=== PATIENT | female | born 1970 | race African-American/Black ===

== ENCOUNTER 2020-04-23 09:11 | Emergency (ER) | payer SELFPAY ==
[2020-04-23] MEDS ORDERED: Acetaminophen 500 MG TAB ONE (09:23)
[2020-04-23] MEDS ORDERED: Ibuprofen 200 MG TAB ONE (09:23)
--- NOTE | 2020-04-23 18:14 | RAD ---
RIGHT ANKLE THREE VIEWS: 04/23/20 No fracture or joint space abnormality was seen. A calcaneal spur is present. IMPRESSION: No acute bony finding. POS: HOME
== END 2020-04-23 10:00 | disposition home or self-care (01) ==
LOC: BURERS 09:11
DX: S93.421A Sprain of deltoid ligament of right ankle, initial encounter (principal); I10 Essential (primary) hypertension; F31.9 Bipolar disorder, unspecified; Z79.899 Other long term (current) drug therapy; W18.42XA Slipping, tripping and stumbling without falling due to stepping into hole or opening, initial encounter

== ENCOUNTER 2020-06-16 04:43 | Emergency (ER) | payer SELFPAY ==
[2020-06-16] MEDS ORDERED: Morphine 10 MG/ML VIAL ONE (05:11)
[2020-06-16] MEDS ORDERED: Ondansetron PF 4 MG/2 ML Vial ONE (05:21)
[2020-06-16] MEDS ORDERED: Ketorolac Tromethamine 30 MG/ML VIAL ONE (05:27)
[2020-06-16 05:29] LABS: Bilirubin Negative (Negative); Blood, Urine Moderate (Negative); Clarity Clear (Clear); Glucose, Urine (Dipstick) 100 mg/dL (Negative); Ketone, Urine Trace mg/dL (Negative); Leukocyte Trace (Negative); Nitrite Negative (Negative); Protein, Urine (Dipstick) 30 mg/dL (Neg-Trace); pH, Urine 7.5 (5.0-9.0)
[2020-06-16 05:30] LABS: BHCG - Serum Negative (NEGATIVE); Pregs Control Background? CLEAR/WHITE (CLR/WHITE); Pregs Control Bar Appear? YES (CONTROL BAR)
[2020-06-16 05:34] LABS: Bacteria/HPF 2+ HPF (None Seen); Squamous Epithelial 0-3 HPF (0-3)
[2020-06-16 05:39] LABS: ALT (SGPT) 12 U/L (8-55); AST (SGOT) 19 U/L (5-34); Albumin 3.7 g/dL (3.5-5.0); Alkaline Phosphatase 41 U/L (40-110); Anion Gap 20 mmol/L (10-20); BUN (Urea Nitrogen) 17 mg/dL (7.0-18.7); Bilirubin, Total 0.3 mg/dL (0.2-1.2); Calc. Creatinine Clearance 0 mL/min (70-130); Calcium 8.6 mg/dL (7.8-10.44); Carbon Dioxide 20 mmol/L (22-29); Chloride 101 mmol/L (98-107); Estimated GFR-MDRD Greater than 90; Globulin 3.8 g/dL (2.4-3.5); Glucose 214 mg/dL (70-105); Lipase 8 U/L (8-78); Potassium 4.7 mmol/L (3.5-5.1); Protein, Total 7.5 g/dL (6.0-8.3); Sodium 136 mmol/L (136-145)
[2020-06-16] MEDS ORDERED: Fentanyl 100 MCG/2 ML VIAL ONE (05:42)
[2020-06-16 05:46] LABS: #Basophils 0.1 thou/uL (0.0-0.2); #Lymphocytes 1.3 thou/uL (1.20-3.40); #Monocytes 0.5 thou/uL (0.11-0.59); #Neutrophils 9.6 thou/uL (1.40-6.50); %Eosinophils 0.1 % (0.0-10.0); %Lymphocytes 11.6 % (21.0-51.0); %Monocytes 4.7 % (0.0-10.0); %Neutrophils 82.7 % (42.0-75.0); Anisocytosis SLIGHT = 6-15 cells (100X) (0-5/hpf); Hemoglobin 8.8 g/dL (12.0-16.0); Hypochromia SLIGHT = 6-15 cells (100X) (0-5/hpf); MDiff Complete? YES; Mean Corpuscular HGB CONC 29.9 g/dL (32.0-36.0); Mean Corpuscular Hemoglobin 19.8 pg (27.0-31.0); Mean Corpuscular Volume 66.1 fL (78.0-98.0); Microcytosis SLIGHT = 6-15 cells (100X) (0-5/hpf); Ovalocytes SLIGHT = 2-5 cells (100X) (0-1/hpf); Platelet Count 322 thou/uL (130-400); Platelet Morphology Comment Appears Adequate; RBC Distribution Width 17.6 % (11.5-14.5); Red Blood Cell (RBC) Count 4.44 mill/uL (4.20-5.40); Target Cells SLIGHT = 2-5 cells (100X) (0-1/hpf); Tear Drops SLIGHT = 2-5 cells (100X) (0-1/hpf); White Blood Cell (WBC) Count 11.6 thou/uL (4.8-10.8)
[2020-06-16] MEDS ORDERED: Sulfameth/Trimethoprim DS 800-160mg TAB ONE (06:10)
--- NOTE | 2020-06-16 08:52 | CT ---
PRELIMINARY REPORT/[facility]/EMERGENCY AFTER HOURS PROCEDURE: EXAM: CT Abdomen and Pelvis Without Intravenous Contrast CLINICAL HISTORY: LEFT FLANK PAIN, HX OF KIDNEY STONES TECHNIQUE: Axial computed tomography images of the abdomen and pelvis without intravenous contrast. CONTRAST: None. COMPARISON: None provided. FINDINGS: LUNG BASES: No basilar airspace consolidation or pleural effusion. LIVER: Unremarkable. GALLBLADDER AND BILE DUCTS: Unremarkable. No calcified stone. No ductal dilation. PANCREAS: Unremarkable. SPLEEN: Unremarkable. ADRENAL GLANDS: Unremarkable. KIDNEYS, URETERS, AND BLADDER: Right kidney is within normal limits. 8mm calculus is present lower pole left kidney. There is modera te left hydroureteronephrosis secondary to a mid ureteric calculus measuring 5 mm. STOMACH AND BOWEL: No obstruction. No wall thickening. No CT evidence of colitis or acute diverticulitis. APPENDIX: Appendix is within normal limits. PERITONEUM: No free fluid. No free air. LYMPH NODES: No lymphadenopathy. REPRODUCTIVE: Uterine fibroid is present measuring 5.5 cm. VASCULATURE: No aortic aneurysm. ABDOMINAL WALL AND SOFT TISSUES: Unremarkable. BONES: No fracture or suspicious osseous abnormality. IMPRESSION: Left nephrolithiasis. Moderate left hydroureteronephrosis secondary to a 5 mm mid ureteric calculus. Uterine fibroid. ELECTRONICALLY SIGNED BY: Christi Foster MD Jun 16, 2020 5:55:56 AM CDT This report is intended for review by the ordering physician only, in accordance of law. If you recei ve this report in error, please call [facility] at [phone]. FINAL REPORT CT ABDOMEN AND PELVIS WITHOUT CONTRAST: DATE: 06/16/2020 Comparison is made with the 03/23/2019 study. The major finding on the study is a 7.0 mm calculus in the mid left ureter at about the L5-S1 level t hat is causing moderate left hydronephrosis. Retained stones are still present in the left kidney. No ne are seen in the right kidney. The lung bases are clear. The liver, spleen, pancreas, gallbladder, adrenal glands, and aorta were un remarkable in appearance. CT of the pelvis is remarkable for enlargement and inhomogeneity of the uterus. This was noted on the prior scan. There does appear to be a mass in the fundus which could be a fibroid; however, portions of what I am seeing also appear likely they could be in the endometrial cavity. I would strongly adv ise getting a follow-up pelvic ultrasound to investigate the finding. IMPRESSION: 1. 7.0 mm mid to distal left ureteral calculus at the L5-S1 level causing moderate left hydronephros is. 2. Nonobstructing calculus remains in the left kidney. 3. Uterine mass. This deserves further follow-up to be sure it is a fibroid and not a mass within th e endometrial cavity. Ultrasound strongly recommended. Report in agreement with preliminary reading by [facility]. CODE T. POS: HOME
== END 2020-06-16 06:21 | disposition home or self-care (01) ==
LOC: BURERS 04:43
DX: N13.2 Hydronephrosis with renal and ureteral calculous obstruction (principal); D64.9 Anemia, unspecified; I10 Essential (primary) hypertension; F31.9 Bipolar disorder, unspecified; Z79.899 Other long term (current) drug therapy
CPT/HCPCS: 74176; 80053; 81003; 81015; 83690; 84703; 85025; 87077; 87086; 96361; 96372; 96374; 96375; J1885; J2270; J2405; J3010

== ENCOUNTER 2022-06-13 15:13 | Emergency (ER) | payer SELFPAY ==
[2022-06-13] MEDS ORDERED: Iopamidol 370 76% 100 ML VIAL FS ONE (15:14)
[2022-06-13] MEDS ORDERED: Dicyclomine 20 MG TAB ONE (16:01)
[2022-06-13] MEDS ORDERED: Ketorolac Tromethamine 30 MG/ML VIAL ONE (16:01)
[2022-06-13 16:03] LABS: #Basophils 0.1 thou/uL (0.0-0.2); #Lymphocytes 1.2 thou/uL (1.20-3.40); #Monocytes 0.4 thou/uL (0.11-0.59); #Neutrophils 8.1 thou/uL (1.40-6.50); %Basophils 0.7 % (0.0-1.0); %Eosinophils 0.2 % (0.0-10.0); %Lymphocytes 12.7 % (21.0-51.0); %Monocytes 3.9 % (0.0-10.0); %Neutrophils 82.6 % (42.0-75.0); Hemoglobin 12.4 g/dL (12.0-16.0); Mean Corpuscular HGB CONC 34.6 g/dL (32.0-36.0); Mean Corpuscular Hemoglobin 28.9 pg (27.0-31.0); Mean Corpuscular Volume 83.6 fL (78.0-98.0); Mean Platelet Volume 7.2 fL (7.4-10.4); Platelet Count 237 thou/uL (130-400); RBC Distribution Width 14.1 % (11.5-14.5); Red Blood Cell (RBC) Count 4.29 mill/uL (4.20-5.40); White Blood Cell (WBC) Count 9.8 thou/uL (4.8-10.8)
[2022-06-13 16:19] LABS: ALT (SGPT) 18 U/L (8-55); AST (SGOT) 14 U/L (5-34); Albumin 3.5 g/dL (3.5-5.0); Alkaline Phosphatase 38 U/L (40-110); Anion Gap 14 mmol/L (10-20); BUN (Urea Nitrogen) 11 mg/dL (9.8-20.1); Bilirubin, Total 0.5 mg/dL (0.2-1.2); Calc. Creatinine Clearance 0 mL/min (70-130); Calcium 8.2 mg/dL (7.8-10.44); Carbon Dioxide 23 mmol/L (22-29); Chloride 104 mmol/L (98-107); Estimated GFR 98; Globulin 3.6 g/dL (2.4-3.5); Glucose 197 mg/dL (70-105); Potassium 3.6 mmol/L (3.5-5.1); Protein, Total 7.1 g/dL (6.0-8.3); Sodium 137 mmol/L (136-145)
[2022-06-13] MEDS ORDERED: metroNIDAZOLE 500 MG/100 ML BAG ONE (16:41)
[2022-06-13] MEDS ORDERED: Ciprofloxacin Lactate/D5W 400 mg/200 ml Premix ONE (17:45)
[2022-06-13 18:39] LABS: Lactic Acid 1.6 mmol/L (0.5-2.2)
[2022-06-13] MEDS ORDERED: Acetaminophen 500 MG TAB ONE (19:09)
== END 2022-06-13 19:17 | disposition home or self-care (01) ==
LOC: BURERS 15:13
DX: K52.9 Noninfective gastroenteritis and colitis, unspecified (principal); I10 Essential (primary) hypertension
CPT/HCPCS: 36415; 74177; 80053; 83605; 85025; 96361; 96365; 96367; 96375; J0744; J1885; Q9967